=== PATIENT | male | born 1940 | race Caucasian/White ===

== ENCOUNTER 2024-09-20 15:15 | Inpatient (IN) | payer MEDICARE, OTHER ==
[~2024-09-20] VITALS: Ht 172.7 cm; Wt 48.1 kg
[2024-09-20 22:41] VITALS: BP 122/61; TEMP 98.2; O2SAT 96
[2024-09-20] MEDS ORDERED: MELA3TAB41 GT (22:59)
[2024-09-20] MEDS ORDERED: CHOL10005 GT (22:59)
[2024-09-20] MEDS ORDERED: SILV50CR32 TP ×2 (22:59)
[2024-09-20] MEDS ORDERED: DOXA4TAB2 GT (22:59)
[2024-09-20] MEDS ORDERED: ACET650S26 GT (22:59)
[2024-09-20] MEDS ORDERED: HEPA500034 SUBCUT (22:59)
[2024-09-20] MEDS ORDERED: CHLO473M5 MT (22:59)
[2024-09-20] MEDS ORDERED: QUET25TA PO (22:59)
[2024-09-20] MEDS ORDERED: IPRA0.2S48 NEB (22:59)
[2024-09-20] MEDS ORDERED: LANS30CA56 GT (22:59)
[2024-09-20] MEDS ORDERED: GLUC1KIT2 IM (22:59)
[2024-09-20] MEDS ORDERED: NYST15PO4 TP (22:59)
[2024-09-20] MEDS ORDERED: NYST30OI TP (22:59)
[2024-09-20] MEDS ORDERED: ALBU2.5V13 NEB (22:59)
[2024-09-20] MEDS ORDERED: PRAS10TA5 GT (22:59)
[2024-09-20] MEDS ORDERED: ATOR10TA GT (22:59)
[2024-09-20] MEDS ORDERED: DEXT50DI5 IV (22:59)
[2024-09-20] MEDS ORDERED: FERR300L GT (22:59)
[2024-09-20] MEDS ORDERED: ASPI81TA31 GT (22:59)
[2024-09-20] MEDS ORDERED: METH10TA80 GT (22:59)
[2024-09-20] MEDS ORDERED: [UNRECOGNIZED DRUG - CODE] TP (22:59)
[2024-09-20] MEDS ORDERED: MIDO10TA GT (22:59)
[2024-09-20] MEDS ORDERED: [UNRECOGNIZED DRUG - CODE] TOP (22:59)
[2024-09-20] MEDS ORDERED: AMIO200T5 GT (22:59)
[2024-09-20] MEDS ORDERED: MICO142O TP ×2 (22:59)
[2024-09-21] VITALS (10 sets, daily range): BP systolic 109–126; BP diastolic 53–63; TEMP 97.5–97.6; O2SAT 93–99
[2024-09-21] MEDS ORDERED: REMEDY ESSENTIAL ZINC PASTE 113 GM TOP PRN
[2024-09-21] MEDS ORDERED: ALBU2.5V13 IH (09:27)
[2024-09-21] MEDS ORDERED: IPRA0.2S48 NEB (09:32)
[2024-09-21] MEDS ORDERED: MIDO5TAB5 PO (09:34)
[2024-09-21] MEDS ORDERED: MELATONIN 3 MG TABLET GT PRN (13:00)
[2024-09-21] MEDS ORDERED: ACETAMINOPHEN 650 MG/20 ML UDC- SA PATIENTS-PAIN ONLY GT PRN (13:00)
[2024-09-21] MEDS ORDERED: IPRATROPIUM BROMIDE 0.5 MG/2.5 ML NEBU NEB PRN ×2 (13:00→13:07)
[2024-09-21] MEDS ORDERED: MIDODRINE HCL 5 MG TABLET PO PRN ×2 (13:15→13:45)
[2024-09-21] MEDS ORDERED: ACETAMINOPHEN 650 MG/20.3 ML LIQUID UDC PO PRN (13:15)
[2024-09-21] MEDS ORDERED: MICONAZOLE NITRATE CREAM 15 GM TUBE TOP PRN (13:30)
[2024-09-21] MEDS ORDERED: SODIUM HYPOCHLORITE 0.125% (QUARTER STRENGTH) 473 ML BOTTLE TP SCH (13:30)
[2024-09-21] MEDS ORDERED: ALBUTEROL SULFATE 2.5 MG/ 0.5 ML NEBU IH PRN (13:30)
[2024-09-21] MEDS ORDERED: SODIUM HYPOCHLORITE 0.125% (QUARTER STRENGTH) 473 ML BOTTLE TP PRN (13:30)
[2024-09-21] MEDS ORDERED: Medication Not On Formulary EA (Midodrine Hcl 10 MG) GT SCH (14:00)
[2024-09-21] MEDS: AMIODARONE HCL 200 MG TABLET GT SCH (14:18)
[2024-09-21] MEDS: MIDODRINE HCL 5 MG TABLET GT SCH (14:23)
[2024-09-21] MEDS: ALBUTEROL SULFATE 2.5 MG/ 0.5 ML NEBU NEB SCH (14:27)
[2024-09-21] MEDS: IPRATROPIUM BROMIDE 0.5 MG/2.5 ML NEBU NEB SCH (14:28)
[2024-09-21] MEDS ORDERED: SILVER SULFADIAZINE 1% CREAM 50 GM TP PRN (17:00)
[2024-09-21] MEDS ORDERED: HEPARIN SODIUM,PORCINE 5,000 UNITS/ML VIAL SQ SCH (21:00)
[2024-09-21] MEDS: QUETIAPINE FUMARATE 25 MG TABLET PO SCH (21:00)
[2024-09-21] MEDS ORDERED: MICONAZOLE NITRATE CREAM 15 GM TUBE TOP SCH (21:00)
[2024-09-21] MEDS ORDERED: SILVER SULFADIAZINE 1% CREAM 50 GM TP SCH (21:00)
[2024-09-21] MEDS: ATORVASTATIN 10 MG TABLET GT SCH (22:18)
[2024-09-21] MEDS: DOXAZOSIN 2 MG TABLET PO SCH (22:18)
[2024-09-21] MEDS: CHLORHEXIDINE GLUCONATE 15 ML MOUTHWASH MM SCH (22:22)
[2024-09-22] VITALS (8 sets, daily range): BP systolic 105–115; BP diastolic 56–61; TEMP 97.2–97.6; O2SAT 97–100
[2024-09-22] MEDS: METHIMAZOLE 5 MG TABLET GT SCH (06:48)
[2024-09-22 07:47] LABS: BASOPHILS # (AUTO) 0.1 K/UL (0.0-0.2); BASOPHILS % (AUTO) 0.7 % (0.0-2.0); EOSINOPHILS # (AUTO) 0.1 K/uL (0.0-0.7); EOSINOPHILS % (AUTO) 1.6 % (0.0-7.0); HEMATOCRIT 39.2 % (36.7-47.1); HEMOGLOBIN 12.8 g/dL (12.5-16.3); LYMPHOCYTES # (AUTO) 1.5 K/uL (0.8-4.8); LYMPHOCYTES % (AUTO) 15.1 % (20.5-51.5); MEAN CORPUSCULAR HEMOGLOBIN 31.8 uug (23.8-33.4); MEAN CORPUSCULAR HGB CONC 33 g/dL (32.5-36.3); MEAN CORPUSCULAR VOLUME 97.1 fL (73.0-96.2); MONOCYTES # (AUTO) 0.9 K/uL (0.1-1.30); MONOCYTES % (AUTO) 9.2 % (0.0-11.0); NEUTROPHILS # (AUTO) 7.1 K/uL (1.8-8.9); NEUTROPHILS % (AUTO) 73.4 % (38.5-71.5); PLATELET COUNT (AUTO) 385 K/uL (152-348); RED BLOOD CELL COUNT(AUTO) 4.03 MIL/uL (4.06-5.63); RED CELL DISTRIBUTION WIDTH 19.9 % (12.1-16.2); WHITE BLOOD COUNT (AUTO) 9.6 K/uL (3.6-10.2)
[2024-09-22 07:55] LABS: DIFFERENTIAL COMMENT 1
[2024-09-22] MEDS ORDERED: PRASUGREL HYDROCHLORIDE GT SCH (09:00)
[2024-09-22] MEDS ORDERED: METHIMAZOLE GT SCH (09:00)
[2024-09-22] MEDS: FERROUS SULFATE 300 MG/5 ML LIQUID UDC GT SCH (09:16)
[2024-09-22] MEDS: PANTOPRAZOLE ORAL SUSPENSION 40 MG SUSPDR.PKT GT SCH (09:17)
[2024-09-22] MEDS: ASPIRIN 81 MG TAB.CHEW GT SCH (09:17)
[2024-09-22] MEDS: CHOLECALCIFEROL 1,000 UNIT TABLET PO SCH (09:17)
[2024-09-22] MEDS: PRASUGREL HCL 5 MG TABLET PO SCH (09:17)
[2024-09-22] MEDS: ARGININE/GLUTAMINE/CALCIUM BMB 1 EACH POWD.PACK GT SCH (09:18)
[2024-09-22] MEDS: MEDIHONEY= THERAHONEY 1.5 OZ TUBE TOP SCH (14:33)
[2024-09-23] VITALS (9 sets, daily range): BP systolic 98–110; BP diastolic 49–65; TEMP 97.2–98.2; O2SAT 96–100
[2024-09-24] VITALS (10 sets, daily range): BP systolic 99–106; BP diastolic 52–58; TEMP 97.6–98.2; O2SAT 91–100
[2024-09-24 08:26] LABS: BASOPHILS % (AUTO) 0.2 % (0.0-2.0); HEMATOCRIT 38.7 % (36.7-47.1); HEMOGLOBIN 12.8 g/dL (12.5-16.3); LYMPHOCYTES % (AUTO) 6.1 % (20.5-51.5); MEAN CORPUSCULAR HEMOGLOBIN 32.1 uug (23.8-33.4); MEAN CORPUSCULAR HGB CONC 33 g/dL (32.5-36.3); MEAN CORPUSCULAR VOLUME 96.7 fL (73.0-96.2); MONOCYTES # (AUTO) 1.1 K/uL (0.1-1.30); MONOCYTES % (AUTO) 6.6 % (0.0-11.0); NEUTROPHILS # (AUTO) 14.4 K/uL (1.8-8.9); NEUTROPHILS % (AUTO) 87.1 % (38.5-71.5); PLATELET COUNT (AUTO) 385 K/uL (152-348); WHITE BLOOD COUNT (AUTO) 16.5 K/uL (3.6-10.2)
[2024-09-24 08:31] LABS: DIFFERENTIAL COMMENT 1
[2024-09-24 09:05] LABS: ALANINE AMINOTRANSFERASE 28 U/L (16-63); ALBUMIN 2.3 g/dL (3.4-5.0); ALKALINE PHOSPHATASE 143 U/L (50-136); ASPARTATE AMINOTRANSFERASE 21 U/L (15-37); BILIRUBIN,DIRECT 0.1 mg/dL (0.0-0.2); BILIRUBIN,TOTAL 0.5 mg/dL (0.2-1.0); CALCIUM 9.2 mg/dL (8.5-10.1); CARBON DIOXIDE 28 mmol/L (21-32); CHLORIDE 99 mmol/L (98-107); GLUCOSE 192 mg/dL (74-106); MAGNESIUM 2.1 mg/dL (1.8-2.4); PHOSPHOROUS 3.9 mg/dL (2.5-4.9); POTASSIUM 5.1 mmol/L (3.5-5.1); SODIUM SERUM 137 mmol/L (136-145); TOTAL PROTEIN, SERUM 7.3 g/dL (6.4-8.2); UREA NITROGEN, BLOOD 66 mg/dL (7-18)
[2024-09-24 13:03] LABS: *BLOOD, URINE 3+ (NEGATIVE); *CLARITY,URINE CLOUDY (CLEAR); *COLOR,URINE Other (YELLOW); *KETONES,URINE 2+ (NEGATIVE); LEUKOCYTE ESTERASE ,URINE 3+ (NEGATIVE); NITRITE, URINE NEGATIVE (NEGATIVE); PH,URINE 8.5 (5.0-8.0); UGLUCOSE TRACE (NEGATIVE)
[2024-09-24 13:10] LABS: *BILIRUBIN,URIN 3+ (NEGATIVE); *PROTEIN,URINE 3+ (NEGATIVE)
[2024-09-24 13:22] LABS: RBC,URINE TNTC /HPF (0-3); WBC,URINE 20-50 /HPF (0-3)
[2024-09-24] MEDS: OSMOLITE 1.2 CAL 1,000 ML LIQUID GT SCH (17:37)
[2024-09-25] MEDS ORDERED: PIPERACILLIN SODIUM/TAZOBACTAM 3.375 G in IV DEXTROSE 5% 50 ML IV SCH
[2024-09-25] MEDS ORDERED: PIPERACILLIN/TAZOBACTAM/D5W 50 ML ONE (00:09)
[2024-09-25] MEDS: PIPERACILLIN/TAZO 2.25 G in IV DEXTROSE 5% 50 ML IV ONE (00:15)
[2024-09-25] MEDS: IV D5/ 0.9% NACL 1,000 ML IV PRN (00:39)
[2024-09-25] MEDS ORDERED: PIPERACILLIN/TAZOBACTAM/D5W 50 ML IV ONE (05:30)
[2024-09-25] MEDS: PIPERACILLIN SODIUM/TAZOBACTAM 3.375 G in IV DEXTROSE 5% 100 ML IV SCH (06:16)
[2024-09-25 06:27] VITALS: BP 110/68; TEMP 97.4; O2SAT 97
[2024-09-25 07:40] VITALS: O2SAT 96
[2024-09-25 07:55] VITALS: O2SAT 99
[2024-09-25 08:54] LABS: BASOPHILS % (AUTO) 0.2 % (0.0-2.0); EOSINOPHILS % (AUTO) 0.1 % (0.0-7.0); HEMATOCRIT 37.5 % (36.7-47.1); HEMOGLOBIN 12.8 g/dL (12.5-16.3); LYMPHOCYTES # (AUTO) 0.6 K/uL (0.8-4.8); LYMPHOCYTES % (AUTO) 6.3 % (20.5-51.5); MEAN CORPUSCULAR HGB CONC 34 g/dL (32.5-36.3); MEAN CORPUSCULAR VOLUME 96.9 fL (73.0-96.2); MONOCYTES # (AUTO) 0.4 K/uL (0.1-1.30); MONOCYTES % (AUTO) 4.1 % (0.0-11.0); NEUTROPHILS # (AUTO) 8.8 K/uL (1.8-8.9); NEUTROPHILS % (AUTO) 89.3 % (38.5-71.5); PLATELET COUNT (AUTO) 336 K/uL (152-348); RED BLOOD CELL COUNT(AUTO) 3.87 MIL/uL (4.06-5.63); RED CELL DISTRIBUTION WIDTH 19.3 % (12.1-16.2); WHITE BLOOD COUNT (AUTO) 9.8 K/uL (3.6-10.2)
[2024-09-25 09:00] LABS: DIFFERENTIAL COMMENT 1
[2024-09-25 09:06] LABS: CALCIUM 9.4 mg/dL (8.5-10.1); CARBON DIOXIDE 29 mmol/L (21-32); CHLORIDE 101 mmol/L (98-107); GLUCOSE 210 mg/dL (74-106); MAGNESIUM 2.1 mg/dL (1.8-2.4); POTASSIUM 4.9 mmol/L (3.5-5.1); SODIUM SERUM 140 mmol/L (136-145); UREA NITROGEN, BLOOD 77 mg/dL (7-18)
[2024-09-25 09:19] VITALS: BP 102/53; TEMP 94.6; O2SAT 93
[2024-09-25 14:00] VITALS: O2SAT 95
[2024-09-25 14:15] VITALS: O2SAT 99
== END 2024-09-25 14:44 | disposition short-term general hospital (02) | DRG 189 ==
PROVIDERS: ADMIT Physical Medicine & Rehabilitation Pain Medicine; ATTEND Physical Medicine & Rehabilitation Pain Medicine
DX: J96.01 Acute respiratory failure with hypoxia (principal); L89.153 Pressure ulcer of sacral region, stage 3; G92.8 Other toxic encephalopathy; J15.8 Pneumonia due to other specified bacteria; J47.0 Bronchiectasis with acute lower respiratory infection; N39.0 Urinary tract infection, site not specified; G72.81 Critical illness myopathy; K94.13 Enterostomy malfunction; J96.02 Acute respiratory failure with hypercapnia; I25.10 Atherosclerotic heart disease of native coronary artery without angina pectoris; I10 Essential (primary) hypertension; E78.5 Hyperlipidemia, unspecified; E03.9 Hypothyroidism, unspecified; J43.9 Emphysema, unspecified; R13.10 Dysphagia, unspecified; Z98.61 Coronary angioplasty status; Z85.038 Personal history of other malignant neoplasm of large intestine; E11.9 Type 2 diabetes mellitus without complications; Z87.442 Personal history of urinary calculi; Z90.49 Acquired absence of other specified parts of digestive tract; Z22.39 Carrier of other specified bacterial diseases; R31.0 Gross hematuria
CPT/HCPCS: 36415; 71045; 83735; 84100; 85025; 86140; 94640; 94664; 94760; 97535-GO-CO; J2543; J3590; J7042

== ENCOUNTER 2024-09-25 14:56 | Inpatient (IN) | payer MEDICARE, OTHER ==
[~2024-09-25] VITALS: Ht 167.6 cm; Wt 58.5 kg
[2024-09-25 14:50] VITALS: BP 102/49; TEMP 97.9; O2SAT 95
[~2024-09-25 14:56] MED LIST: ACET650S26 GT; ALBU2.5V13 IH; ALBU2.5V13 NEB; AMIO200T5 GT; ASPI81TA31 GT; ATOR10TA GT; CHLO473M5 MT; CHOL10005 GT; DEXT50DI5 IV; DOXA4TAB2 GT; FERR300L GT; GLUC1KIT2 IM; IPRA0.2S48 NEB; LANS30CA56 GT; MELA3TAB41 GT; METH10TA80 GT; MIDO10TA GT; PRAS10TA5 GT; QUET25TA PO
[2024-09-25] MEDS ORDERED: DEXTROSE 50% 50 ML DISP.SYRIN IV PRN (18:00)
[2024-09-25] MEDS ORDERED: GLUCAGON,HUMAN RECOMBINANT 1 MG VIAL IM PRN (18:00)
[2024-09-25] MEDS ORDERED: ALBUTEROL SULFATE 2.5 MG/ 0.5 ML NEBU NEB PRN (18:00)
[2024-09-25] MEDS ORDERED: IPRATROPIUM BROMIDE 0.5 MG/2.5 ML NEBU NEB PRN (18:00)
[2024-09-25 19:30] VITALS: BP 120/64; TEMP 97.9; O2SAT 100
[2024-09-25 20:10] VITALS: O2SAT 97
[2024-09-25] MEDS: ALBUTEROL SULFATE 2.5 MG/ 0.5 ML NEBU NEB SCH (20:10)
[2024-09-25] MEDS: IPRATROPIUM BROMIDE 0.5 MG/2.5 ML NEBU NEB SCH (20:10)
[2024-09-25] MEDS: CHLORHEXIDINE GLUCONATE 15 ML MOUTHWASH MM SCH (21:04)
[2024-09-25] MEDS: DOXAZOSIN 1 MG TABLET GT SCH (21:05)
[2024-09-25] MEDS: AMIODARONE HCL 200 MG TABLET GT SCH (21:05)
[2024-09-25] MEDS: QUETIAPINE FUMARATE 25 MG TABLET GT SCH (21:05)
[2024-09-25] MEDS: ATORVASTATIN 10 MG TABLET GT SCH (21:05)
[2024-09-25] MEDS: PIPERACILLIN SODIUM/TAZOBACTAM 3.375 G in IV DEXTROSE 5% 50 ML IV SCH (21:06)
[2024-09-25] MEDS: MIDODRINE HCL 5 MG TABLET GT SCH (21:17)
[2024-09-26] VITALS (11 sets, daily range): BP systolic 94–108; BP diastolic 43–55; TEMP 97.1–97.8; O2SAT 96–99
[2024-09-26] MEDS: OSMOLITE 1.2 CAL 1,000 ML LIQUID GT PRN ×2 (00:35→17:23)
[2024-09-26] MEDS: PANTOPRAZOLE ORAL SUSPENSION 40 MG SUSPDR.PKT GT SCH (06:21)
[2024-09-26 06:45] LABS: BASOPHILS % (AUTO) 0.3 % (0.0-2.0); EOSINOPHILS % (AUTO) 0.3 % (0.0-7.0); HEMOGLOBIN 12.6 g/dL (12.5-16.3); LYMPHOCYTES # (AUTO) 1.1 K/uL (0.8-4.8); LYMPHOCYTES % (AUTO) 8.5 % (20.5-51.5); MEAN CORPUSCULAR HEMOGLOBIN 32.5 uug (23.8-33.4); MEAN CORPUSCULAR HGB CONC 33 g/dL (32.5-36.3); MEAN CORPUSCULAR VOLUME 97.6 fL (73.0-96.2); MONOCYTES # (AUTO) 0.6 K/uL (0.1-1.30); MONOCYTES % (AUTO) 4.7 % (0.0-11.0); NEUTROPHILS # (AUTO) 10.6 K/uL (1.8-8.9); NEUTROPHILS % (AUTO) 86.2 % (38.5-71.5); PLATELET COUNT (AUTO) 362 K/uL (152-348); RED BLOOD CELL COUNT(AUTO) 3.89 MIL/uL (4.06-5.63); RED CELL DISTRIBUTION WIDTH 19.4 % (12.1-16.2); WHITE BLOOD COUNT (AUTO) 12.3 K/uL (3.6-10.2)
[2024-09-26 07:05] LABS: CALCIUM 9.8 mg/dL (8.5-10.1); CARBON DIOXIDE 33 mmol/L (21-32); CHLORIDE 104 mmol/L (98-107); CREATININE 2.1 mg/dL (0.6-1.3); GLUCOSE 133 mg/dL (74-106); POTASSIUM 4.6 mmol/L (3.5-5.1); SODIUM SERUM 145 mmol/L (136-145)
[2024-09-26 07:08] LABS: DIFFERENTIAL COMMENT 1
[2024-09-26 07:11] LABS: UREA NITROGEN, BLOOD 88 mg/dL (7-18)
[2024-09-26] MEDS: FERROUS SULFATE 300 MG/5 ML LIQUID UDC GT SCH (09:14)
[2024-09-26] MEDS: ASPIRIN 81 MG TAB.CHEW GT SCH (09:16)
[2024-09-26] MEDS: PRASUGREL HCL 5 MG TABLET PO SCH (09:17)
[2024-09-26] MEDS: CHOLECALCIFEROL 1,000 UNIT TABLET GT SCH (09:17)
[2024-09-26] MEDS: METHIMAZOLE 5 MG TABLET GT SCH (09:17)
[2024-09-26] MEDS: PIPERACILLIN SODIUM/TAZOBACTAM 3.375 G in IV DEXTROSE 5% 100 ML IV SCH (21:28)
[2024-09-27] VITALS (13 sets, daily range): BP systolic 90–108; BP diastolic 45–57; TEMP 97–98; O2SAT 95–99
[2024-09-27] MEDS: ACETAMINOPHEN 650 MG/20.3 ML LIQUID UDC GT PRN (03:25)
[2024-09-27 07:11] LABS: BASOPHILS % (AUTO) 0.1 % (0.0-2.0); EOSINOPHILS % (AUTO) 0.3 % (0.0-7.0); HEMATOCRIT 34.6 % (36.7-47.1); HEMOGLOBIN 11.3 g/dL (12.5-16.3); LYMPHOCYTES # (AUTO) 0.7 K/uL (0.8-4.8); LYMPHOCYTES % (AUTO) 4.9 % (20.5-51.5); MEAN CORPUSCULAR HEMOGLOBIN 32.1 uug (23.8-33.4); MEAN CORPUSCULAR HGB CONC 33 g/dL (32.5-36.3); MEAN CORPUSCULAR VOLUME 98.4 fL (73.0-96.2); MONOCYTES # (AUTO) 0.6 K/uL (0.1-1.30); NEUTROPHILS # (AUTO) 12.5 K/uL (1.8-8.9); NEUTROPHILS % (AUTO) 90.7 % (38.5-71.5); PLATELET COUNT (AUTO) 306 K/uL (152-348); RED BLOOD CELL COUNT(AUTO) 3.51 MIL/uL (4.06-5.63); RED CELL DISTRIBUTION WIDTH 19.3 % (12.1-16.2); WHITE BLOOD COUNT (AUTO) 13.8 K/uL (3.6-10.2)
[2024-09-27 07:36] LABS: CALCIUM 8.6 mg/dL (8.5-10.1); CARBON DIOXIDE 30 mmol/L (21-32); CHLORIDE 107 mmol/L (98-107); CREATININE 1.7 mg/dL (0.6-1.3); GLUCOSE 216 mg/dL (74-106); MAGNESIUM 2.1 mg/dL (1.8-2.4); PHOSPHOROUS 3.7 mg/dL (2.5-4.9); POTASSIUM 4.1 mmol/L (3.5-5.1); SODIUM SERUM 147 mmol/L (136-145); UREA NITROGEN, BLOOD 80 mg/dL (7-18)
[2024-09-27 07:45] LABS: DIFFERENTIAL COMMENT 1
[2024-09-27 12:30] LABS: LYMPHOCYTES % (MANUAL) 5 % (20-40); MONOCYTES % (MANUAL) 4 % (2-10); NEUTROPHILS % (MANUAL) 91 % (42-75); PLATELET ESTIMATE ADEQUATE
[2024-09-27] MEDS: ARGININE/GLUTAMINE/CALCIUM BMB 1 EACH POWD.PACK GT SCH (13:53)
[2024-09-27] MEDS: MEDIHONEY= THERAHONEY 1.5 OZ TUBE TOP SCH (13:54)
[2024-09-27 15:09] LABS: *BILIRUBIN,URIN NEGATIVE (NEGATIVE); *BLOOD, URINE 3+ (NEGATIVE); *CLARITY,URINE SLIGHTLY CLOUDY (CLEAR); *COLOR,URINE YELLOW (YELLOW); *KETONES,URINE NEGATIVE (NEGATIVE); *PROTEIN,URINE 2+ (NEGATIVE); *UROBILINOGEN,URINE 0.2 E.U./dl (NORMAL); LEUKOCYTE ESTERASE ,URINE 2+ (NEGATIVE); NITRITE, URINE NEGATIVE (NEGATIVE); UGLUCOSE NEGATIVE (NEGATIVE)
[2024-09-27 15:35] LABS: RBC,URINE 80-100 /HPF (0-3)
[2024-09-27 15:36] LABS: BACTERIA,URINE FEW /HPF (NONE SEEN); SQUAMOUS EPITHELIAL CELL,UR FEW /HPF (NONE SEEN); WBC,URINE 20-50 /HPF (0-3)
[2024-09-27] MEDS: PIPERACILLIN SODIUM/TAZOBACTAM 3.375 G in IV DEXTROSE 5% 100 ML IV SCH (16:39)
[2024-09-28] VITALS (10 sets, daily range): BP systolic 91–113; BP diastolic 47–61; TEMP 97–98.3; O2SAT 94–100
[2024-09-28 07:09] LABS: BASOPHILS % (AUTO) 0.2 % (0.0-2.0); EOSINOPHILS # (AUTO) 0.1 K/uL (0.0-0.7); EOSINOPHILS % (AUTO) 0.6 % (0.0-7.0); HEMATOCRIT 31.5 % (36.7-47.1); HEMOGLOBIN 10.4 g/dL (12.5-16.3); LYMPHOCYTES # (AUTO) 0.9 K/uL (0.8-4.8); MEAN CORPUSCULAR HEMOGLOBIN 32.2 uug (23.8-33.4); MEAN CORPUSCULAR HGB CONC 33 g/dL (32.5-36.3); MEAN CORPUSCULAR VOLUME 97.5 fL (73.0-96.2); MONOCYTES # (AUTO) 0.8 K/uL (0.1-1.30); MONOCYTES % (AUTO) 5.1 % (0.0-11.0); NEUTROPHILS # (AUTO) 13.3 K/uL (1.8-8.9); NEUTROPHILS % (AUTO) 88.1 % (38.5-71.5); PLATELET COUNT (AUTO) 295 K/uL (152-348); RED BLOOD CELL COUNT(AUTO) 3.23 MIL/uL (4.06-5.63); RED CELL DISTRIBUTION WIDTH 18.6 % (12.1-16.2); WHITE BLOOD COUNT (AUTO) 15.1 K/uL (3.6-10.2)
[2024-09-28 07:21] LABS: CALCIUM 8.6 mg/dL (8.5-10.1); CARBON DIOXIDE 30 mmol/L (21-32); CHLORIDE 110 mmol/L (98-107); CREATININE 1.7 mg/dL (0.6-1.3); GLUCOSE 206 mg/dL (74-106); MAGNESIUM 2.2 mg/dL (1.8-2.4); PHOSPHOROUS 3.7 mg/dL (2.5-4.9); POTASSIUM 3.7 mmol/L (3.5-5.1); SODIUM SERUM 150 mmol/L (136-145); UREA NITROGEN, BLOOD 71 mg/dL (7-18)
[2024-09-28 07:46] LABS: DIFFERENTIAL COMMENT 1
[2024-09-28] MEDS: IV D5W 1000ML 1,000 ML IV ONE (09:05)
[2024-09-28 11:30] LABS: BAND % (MANUAL) 3 % (0-10); LYMPHOCYTES % (MANUAL) 9 % (20-40); MONOCYTES % (MANUAL) 5 % (2-10); NEUTROPHILS % (MANUAL) 80 % (42-75)
[2024-09-28 11:31] LABS: ANISOCYTOSIS 1+; MYELOCYTES % 3 % (0-0); PLATELET ESTIMATE ADEQUATE
[2024-09-29] VITALS (12 sets, daily range): BP systolic 96–117; BP diastolic 45–57; TEMP 97.1–97.6; O2SAT 92–99
[2024-09-29 06:48] LABS: BASOPHILS % (AUTO) 0.3 % (0.0-2.0); EOSINOPHILS # (AUTO) 0.2 K/uL (0.0-0.7); EOSINOPHILS % (AUTO) 0.9 % (0.0-7.0); HEMATOCRIT 36.2 % (36.7-47.1); HEMOGLOBIN 11.8 g/dL (12.5-16.3); LYMPHOCYTES # (AUTO) 1.2 K/uL (0.8-4.8); LYMPHOCYTES % (AUTO) 6.5 % (20.5-51.5); MEAN CORPUSCULAR HEMOGLOBIN 31.7 uug (23.8-33.4); MEAN CORPUSCULAR HGB CONC 33 g/dL (32.5-36.3); MEAN CORPUSCULAR VOLUME 97.3 fL (73.0-96.2); MONOCYTES % (AUTO) 5.3 % (0.0-11.0); NEUTROPHILS # (AUTO) 15.9 K/uL (1.8-8.9); PLATELET COUNT (AUTO) 348 K/uL (152-348); RED BLOOD CELL COUNT(AUTO) 3.72 MIL/uL (4.06-5.63); RED CELL DISTRIBUTION WIDTH 19.1 % (12.1-16.2); WHITE BLOOD COUNT (AUTO) 18.2 K/uL (3.6-10.2)
[2024-09-29 06:51] LABS: DIFFERENTIAL COMMENT 1
[2024-09-29 07:10] LABS: CALCIUM 8.8 mg/dL (8.5-10.1); CARBON DIOXIDE 36 mmol/L (21-32); CHLORIDE 106 mmol/L (98-107); CREATININE 1.6 mg/dL (0.6-1.3); GLUCOSE 130 mg/dL (74-106); MAGNESIUM 2.1 mg/dL (1.8-2.4); PHOSPHOROUS 3.9 mg/dL (2.5-4.9); POTASSIUM 3.6 mmol/L (3.5-5.1); SODIUM SERUM 148 mmol/L (136-145); UREA NITROGEN, BLOOD 78 mg/dL (7-18)
[2024-09-29] MEDS ORDERED: MEROPENEM 500 MG in IV NORMAL SALINE 50 ML IV SCH (23:15)
[2024-09-30] VITALS (12 sets, daily range): BP systolic 103–119; BP diastolic 52–65; TEMP 96.5–98.4; O2SAT 95–99
[2024-09-30] MEDS ORDERED: MEROPENEM 500MG/NS 50ML PB ***ER PYXIS ONLY IV ONE (00:08)
[2024-09-30] MEDS: MEROPENEM 500 MG in IV NORMAL SALINE 50 ML IV ONE (00:15)
[2024-09-30 07:19] LABS: BASOPHILS % (AUTO) 0.3 % (0.0-2.0); EOSINOPHILS % (AUTO) 0.4 % (0.0-7.0); HEMATOCRIT 38.4 % (36.7-47.1); HEMOGLOBIN 12.5 g/dL (12.5-16.3); LYMPHOCYTES % (AUTO) 6.7 % (20.5-51.5); MEAN CORPUSCULAR HEMOGLOBIN 31.9 uug (23.8-33.4); MEAN CORPUSCULAR HGB CONC 33 g/dL (32.5-36.3); MONOCYTES % (AUTO) 4.2 % (0.0-11.0); NEUTROPHILS % (AUTO) 88.4 % (38.5-71.5); PLATELET COUNT (AUTO) 365 K/uL (152-348); RED BLOOD CELL COUNT(AUTO) 3.91 MIL/uL (4.06-5.63); RED CELL DISTRIBUTION WIDTH 18.9 % (12.1-16.2); WHITE BLOOD COUNT (AUTO) 20.3 K/uL (3.6-10.2)
[2024-09-30 07:20] LABS: BASOPHILS # (AUTO) 0.1 K/UL (0.0-0.2); EOSINOPHILS # (AUTO) 0.1 K/uL (0.0-0.7); LYMPHOCYTES # (AUTO) 1.4 K/uL (0.8-4.8); MONOCYTES # (AUTO) 0.9 K/uL (0.1-1.30)
[2024-09-30 07:37] LABS: CALCIUM 9.1 mg/dL (8.5-10.1); CARBON DIOXIDE 34 mmol/L (21-32); CHLORIDE 106 mmol/L (98-107); CREATININE 1.8 mg/dL (0.6-1.3); GLUCOSE 198 mg/dL (74-106); MAGNESIUM 2.4 mg/dL (1.8-2.4); PHOSPHOROUS 3.7 mg/dL (2.5-4.9); POTASSIUM 3.7 mmol/L (3.5-5.1); SODIUM SERUM 150 mmol/L (136-145)
[2024-09-30 07:48] LABS: DIFFERENTIAL COMMENT 1
[2024-09-30 08:11] LABS: UREA NITROGEN, BLOOD 92 mg/dL (7-18)
[2024-09-30] MEDS: IV D5W 1000ML 1,000 ML IV ONE (10:21)
[2024-09-30] MEDS: MEROPENEM 500 MG in IV NORMAL SALINE 50 ML IV SCH (12:15)
[2024-10-01] VITALS (11 sets, daily range): BP systolic 91–113; BP diastolic 45–60; TEMP 97–97.8; O2SAT 93–100
[2024-10-01 06:24] LABS: BASOPHILS # (AUTO) 0.2 K/UL (0.0-0.2); BASOPHILS % (AUTO) 1.3 % (0.0-2.0); EOSINOPHILS # (AUTO) 0.2 K/uL (0.0-0.7); EOSINOPHILS % (AUTO) 1.3 % (0.0-7.0); HEMATOCRIT 38.7 % (36.7-47.1); HEMOGLOBIN 12.6 g/dL (12.5-16.3); LYMPHOCYTES # (AUTO) 1.8 K/uL (0.8-4.8); LYMPHOCYTES % (AUTO) 9.6 % (20.5-51.5); MEAN CORPUSCULAR HEMOGLOBIN 31.4 uug (23.8-33.4); MEAN CORPUSCULAR HGB CONC 33 g/dL (32.5-36.3); MEAN CORPUSCULAR VOLUME 96.4 fL (73.0-96.2); MONOCYTES # (AUTO) 0.9 K/uL (0.1-1.30); MONOCYTES % (AUTO) 4.9 % (0.0-11.0); NEUTROPHILS # (AUTO) 15.4 K/uL (1.8-8.9); NEUTROPHILS % (AUTO) 82.9 % (38.5-71.5); PLATELET COUNT (AUTO) 330 K/uL (152-348); RED BLOOD CELL COUNT(AUTO) 4.01 MIL/uL (4.06-5.63); RED CELL DISTRIBUTION WIDTH 18.5 % (12.1-16.2); WHITE BLOOD COUNT (AUTO) 18.5 K/uL (3.6-10.2)
[2024-10-01 06:37] LABS: CARBON DIOXIDE 38 mmol/L (21-32); CHLORIDE 99 mmol/L (98-107); CREATININE 1.6 mg/dL (0.6-1.3); GLUCOSE 178 mg/dL (74-106); MAGNESIUM 2.2 mg/dL (1.8-2.4); PHOSPHOROUS 3.5 mg/dL (2.5-4.9); POTASSIUM 3.9 mmol/L (3.5-5.1); SODIUM SERUM 142 mmol/L (136-145)
[2024-10-01 07:02] LABS: DIFFERENTIAL COMMENT 1
[2024-10-01 07:10] LABS: UREA NITROGEN, BLOOD 91 mg/dL (7-18)
[2024-10-01 09:50] LABS: ABG BASE EXCESS 9.8 mmol/L (-2.0-3.0); ABG HCO3 33.8 mmol/L (21.0-28.0); ABG PCO2 42.7 mmHg (35.0-48.0); ABG PH 7.516 (7.350-7.450); ABG PO2 64.6 mmHg (83.0-108.0); ABG SITE RIGHT RADIAL; ABG TOTAL HEMOGLOBIN 13.2 G/dL (13.5-17.5); AaDO2 94.4 mmHg; COHb 0.5 % (0.5-1.5); MetHb 0.2 % (0.0-1.5); O2Hb 92.7 % (94.0-98.0)
[2024-10-02] VITALS (12 sets, daily range): BP systolic 99–118; BP diastolic 50–61; TEMP 97.1–97.8; O2SAT 94–100
[2024-10-02 07:09] LABS: BASOPHILS # (AUTO) 0.1 K/UL (0.0-0.2); BASOPHILS % (AUTO) 0.3 % (0.0-2.0); EOSINOPHILS # (AUTO) 0.2 K/uL (0.0-0.7); EOSINOPHILS % (AUTO) 1.1 % (0.0-7.0); HEMATOCRIT 37.7 % (36.7-47.1); HEMOGLOBIN 12.5 g/dL (12.5-16.3); LYMPHOCYTES # (AUTO) 1.7 K/uL (0.8-4.8); LYMPHOCYTES % (AUTO) 11.2 % (20.5-51.5); MEAN CORPUSCULAR HEMOGLOBIN 32.4 uug (23.8-33.4); MEAN CORPUSCULAR HGB CONC 33 g/dL (32.5-36.3); MEAN CORPUSCULAR VOLUME 97.5 fL (73.0-96.2); MONOCYTES # (AUTO) 0.8 K/uL (0.1-1.30); NEUTROPHILS # (AUTO) 12.4 K/uL (1.8-8.9); NEUTROPHILS % (AUTO) 82.4 % (38.5-71.5); PLATELET COUNT (AUTO) 345 K/uL (152-348); RED BLOOD CELL COUNT(AUTO) 3.86 MIL/uL (4.06-5.63); RED CELL DISTRIBUTION WIDTH 18.2 % (12.1-16.2)
[2024-10-02 07:25] LABS: DIFFERENTIAL COMMENT 1
[2024-10-02 07:43] LABS: CALCIUM 8.7 mg/dL (8.5-10.1); CARBON DIOXIDE 38 mmol/L (21-32); CHLORIDE 100 mmol/L (98-107); CREATININE 1.6 mg/dL (0.6-1.3); GLUCOSE 153 mg/dL (74-106); MAGNESIUM 2.1 mg/dL (1.8-2.4); POTASSIUM 4.1 mmol/L (3.5-5.1); SODIUM SERUM 144 mmol/L (136-145)
[2024-10-02 07:49] LABS: UREA NITROGEN, BLOOD 84 mg/dL (7-18)
[2024-10-02 08:55] LABS: EOSINOPHILS % (MANUAL) 1 % (0-8); LYMPHOCYTES % (MANUAL) 11 % (20-40); METAMYELOCYTES % 2 % (0-1); MONOCYTES % (MANUAL) 6 % (2-10); MYELOCYTES % 1 % (0-0); NEUTROPHILS % (MANUAL) 79 % (42-75); PLATELET ESTIMATE ADEQUATE
[2024-10-03] VITALS (14 sets, daily range): BP systolic 95–116; BP diastolic 53–65; TEMP 97.3–97.9; O2SAT 96–100
[2024-10-03 06:47] LABS: BASOPHILS % (AUTO) 0.3 % (0.0-2.0); EOSINOPHILS # (AUTO) 0.2 K/uL (0.0-0.7); EOSINOPHILS % (AUTO) 1.2 % (0.0-7.0); HEMATOCRIT 39.1 % (36.7-47.1); HEMOGLOBIN 12.8 g/dL (12.5-16.3); LYMPHOCYTES # (AUTO) 1.6 K/uL (0.8-4.8); LYMPHOCYTES % (AUTO) 9.4 % (20.5-51.5); MEAN CORPUSCULAR HEMOGLOBIN 31.6 uug (23.8-33.4); MEAN CORPUSCULAR HGB CONC 33 g/dL (32.5-36.3); MEAN CORPUSCULAR VOLUME 96.4 fL (73.0-96.2); MONOCYTES # (AUTO) 0.8 K/uL (0.1-1.30); MONOCYTES % (AUTO) 4.4 % (0.0-11.0); NEUTROPHILS # (AUTO) 14.8 K/uL (1.8-8.9); NEUTROPHILS % (AUTO) 84.7 % (38.5-71.5); PLATELET COUNT (AUTO) 365 K/uL (152-348); RED BLOOD CELL COUNT(AUTO) 4.06 MIL/uL (4.06-5.63); RED CELL DISTRIBUTION WIDTH 18.9 % (12.1-16.2); WHITE BLOOD COUNT (AUTO) 17.4 K/uL (3.6-10.2)
[2024-10-03 06:56] LABS: DIFFERENTIAL COMMENT 1
[2024-10-03 07:00] LABS: CALCIUM 8.6 mg/dL (8.5-10.1); CARBON DIOXIDE 39 mmol/L (21-32); CHLORIDE 100 mmol/L (98-107); CREATININE 1.4 mg/dL (0.6-1.3); GLUCOSE 146 mg/dL (74-106); MAGNESIUM 2.2 mg/dL (1.8-2.4); PHOSPHOROUS 3.6 mg/dL (2.5-4.9); POTASSIUM 3.4 mmol/L (3.5-5.1); SODIUM SERUM 144 mmol/L (136-145)
[2024-10-03 07:06] LABS: UREA NITROGEN, BLOOD 98 mg/dL (7-18)
[2024-10-03] MEDS: POTASSIUM CHLORIDE 20 MEQ POWDER PACKET GT ONE (13:02)
[2024-10-03] MEDS ORDERED: FLUCONAZOLE 100 MG TABLET ONE (21:17)
[2024-10-03] MEDS: FLUCONAZOLE 100 MG TABLET PO SCH (22:14)
[2024-10-04] VITALS (14 sets, daily range): BP systolic 102–144; BP diastolic 55–74; TEMP 97.3–98.5; O2SAT 94–100
[2024-10-04 09:30] LABS: BASOPHILS % (AUTO) 0.2 % (0.0-2.0); EOSINOPHILS # (AUTO) 0.2 K/uL (0.0-0.7); HEMATOCRIT 40.7 % (36.7-47.1); HEMOGLOBIN 13.1 g/dL (12.5-16.3); LYMPHOCYTES # (AUTO) 2.3 K/uL (0.8-4.8); LYMPHOCYTES % (AUTO) 10.6 % (20.5-51.5); MEAN CORPUSCULAR HEMOGLOBIN 31.6 uug (23.8-33.4); MEAN CORPUSCULAR HGB CONC 32 g/dL (32.5-36.3); MEAN CORPUSCULAR VOLUME 98.2 fL (73.0-96.2); MONOCYTES # (AUTO) 0.8 K/uL (0.1-1.30); MONOCYTES % (AUTO) 3.6 % (0.0-11.0); NEUTROPHILS # (AUTO) 18.5 K/uL (1.8-8.9); NEUTROPHILS % (AUTO) 84.6 % (38.5-71.5); PLATELET COUNT (AUTO) 363 K/uL (152-348); RED BLOOD CELL COUNT(AUTO) 4.15 MIL/uL (4.06-5.63); RED CELL DISTRIBUTION WIDTH 19.3 % (12.1-16.2); WHITE BLOOD COUNT (AUTO) 21.8 K/uL (3.6-10.2)
[2024-10-04 09:31] LABS: DIFFERENTIAL COMMENT 1
[2024-10-04 09:45] LABS: CALCIUM 9.3 mg/dL (8.5-10.1); CARBON DIOXIDE 36 mmol/L (21-32); CHLORIDE 100 mmol/L (98-107); CREATININE 1.5 mg/dL (0.6-1.3); GLUCOSE 117 mg/dL (74-106); MAGNESIUM 2.4 mg/dL (1.8-2.4); PHOSPHOROUS 4.5 mg/dL (2.5-4.9); POTASSIUM 4.5 mmol/L (3.5-5.1); SODIUM SERUM 142 mmol/L (136-145)
[2024-10-04 09:49] LABS: UREA NITROGEN, BLOOD 86 mg/dL (7-18)
[2024-10-04 11:48] LABS: EOSINOPHILS % (MANUAL) 1 % (0-8); LYMPHOCYTES % (MANUAL) 10 % (20-40); MONOCYTES % (MANUAL) 5 % (2-10); NEUTROPHILS % (MANUAL) 83 % (42-75)
[2024-10-04 11:49] LABS: ANISOCYTOSIS 2+; MYELOCYTES % 1 % (0-0); PLATELET ESTIMATE INCREASED
[2024-10-05] VITALS (11 sets, daily range): BP systolic 99–120; BP diastolic 54–64; TEMP 97.4–97.6; O2SAT 92–99
[2024-10-05] MEDS: MELATONIN 3 MG TABLET PO PRN (00:29)
[2024-10-05 06:53] LABS: BASOPHILS # (AUTO) 0.1 K/UL (0.0-0.2); BASOPHILS % (AUTO) 0.3 % (0.0-2.0); EOSINOPHILS # (AUTO) 0.1 K/uL (0.0-0.7); EOSINOPHILS % (AUTO) 0.5 % (0.0-7.0); HEMATOCRIT 38.1 % (36.7-47.1); HEMOGLOBIN 12.9 g/dL (12.5-16.3); LYMPHOCYTES # (AUTO) 1.3 K/uL (0.8-4.8); LYMPHOCYTES % (AUTO) 6.4 % (20.5-51.5); MEAN CORPUSCULAR HEMOGLOBIN 32.5 uug (23.8-33.4); MEAN CORPUSCULAR HGB CONC 34 g/dL (32.5-36.3); MEAN CORPUSCULAR VOLUME 96.4 fL (73.0-96.2); MONOCYTES # (AUTO) 0.7 K/uL (0.1-1.30); MONOCYTES % (AUTO) 3.6 % (0.0-11.0); NEUTROPHILS # (AUTO) 18.4 K/uL (1.8-8.9); NEUTROPHILS % (AUTO) 89.2 % (38.5-71.5); PLATELET COUNT (AUTO) 349 K/uL (152-348); RED BLOOD CELL COUNT(AUTO) 3.95 MIL/uL (4.06-5.63); RED CELL DISTRIBUTION WIDTH 18.3 % (12.1-16.2); WHITE BLOOD COUNT (AUTO) 20.6 K/uL (3.6-10.2)
[2024-10-05 07:06] LABS: CALCIUM 9.3 mg/dL (8.5-10.1); CARBON DIOXIDE 37 mmol/L (21-32); CHLORIDE 100 mmol/L (98-107); CREATININE 1.5 mg/dL (0.6-1.3); GLUCOSE 158 mg/dL (74-106); MAGNESIUM 2.3 mg/dL (1.8-2.4); PHOSPHOROUS 4.5 mg/dL (2.5-4.9); POTASSIUM 3.8 mmol/L (3.5-5.1); SODIUM SERUM 142 mmol/L (136-145)
[2024-10-05 07:08] LABS: DIFFERENTIAL COMMENT 1
[2024-10-05 07:11] LABS: UREA NITROGEN, BLOOD 94 mg/dL (7-18)
[2024-10-05] MEDS ORDERED: SEVOFLURANE 250 ML BOTTLE ONE (08:46)
[2024-10-05] MEDS: IV NS 1000 ML 1,000 ML IV PRN (13:46)
[2024-10-06] VITALS (11 sets, daily range): BP systolic 100–129; BP diastolic 60–89; TEMP 97.4–97.9; O2SAT 95–100
[2024-10-06 07:00] LABS: BASOPHILS # (AUTO) 0.1 K/UL (0.0-0.2); BASOPHILS % (AUTO) 0.4 % (0.0-2.0); EOSINOPHILS # (AUTO) 0.1 K/uL (0.0-0.7); EOSINOPHILS % (AUTO) 0.7 % (0.0-7.0); HEMATOCRIT 35.4 % (36.7-47.1); HEMOGLOBIN 11.6 g/dL (12.5-16.3); LYMPHOCYTES # (AUTO) 1.1 K/uL (0.8-4.8); LYMPHOCYTES % (AUTO) 7.2 % (20.5-51.5); MEAN CORPUSCULAR HEMOGLOBIN 31.9 uug (23.8-33.4); MEAN CORPUSCULAR HGB CONC 33 g/dL (32.5-36.3); MEAN CORPUSCULAR VOLUME 97.5 fL (73.0-96.2); MONOCYTES # (AUTO) 0.7 K/uL (0.1-1.30); MONOCYTES % (AUTO) 4.5 % (0.0-11.0); NEUTROPHILS # (AUTO) 13.5 K/uL (1.8-8.9); NEUTROPHILS % (AUTO) 87.2 % (38.5-71.5); PLATELET COUNT (AUTO) 313 K/uL (152-348); RED BLOOD CELL COUNT(AUTO) 3.63 MIL/uL (4.06-5.63); WHITE BLOOD COUNT (AUTO) 15.5 K/uL (3.6-10.2)
[2024-10-06 07:13] LABS: CALCIUM 8.5 mg/dL (8.5-10.1); CARBON DIOXIDE 37 mmol/L (21-32); CHLORIDE 103 mmol/L (98-107); CREATININE 1.3 mg/dL (0.6-1.3); GLUCOSE 140 mg/dL (74-106); MAGNESIUM 2.1 mg/dL (1.8-2.4); PHOSPHOROUS 3.8 mg/dL (2.5-4.9); POTASSIUM 3.9 mmol/L (3.5-5.1); SODIUM SERUM 144 mmol/L (136-145)
[2024-10-06 07:18] LABS: DIFFERENTIAL COMMENT 1
[2024-10-06 07:22] LABS: UREA NITROGEN, BLOOD 95 mg/dL (7-18)
[2024-10-07] VITALS (7 sets, daily range): BP systolic 102–138; BP diastolic 53–59; TEMP 97.3–97.9; O2SAT 96–99
[2024-10-07 06:26] LABS: BASOPHILS % (AUTO) 0.3 % (0.0-2.0); EOSINOPHILS # (AUTO) 0.1 K/uL (0.0-0.7); EOSINOPHILS % (AUTO) 0.7 % (0.0-7.0); HEMATOCRIT 33.2 % (36.7-47.1); HEMOGLOBIN 10.8 g/dL (12.5-16.3); MEAN CORPUSCULAR HEMOGLOBIN 32.1 uug (23.8-33.4); MEAN CORPUSCULAR HGB CONC 33 g/dL (32.5-36.3); MEAN CORPUSCULAR VOLUME 98.7 fL (73.0-96.2); MONOCYTES # (AUTO) 0.7 K/uL (0.1-1.30); MONOCYTES % (AUTO) 5.7 % (0.0-11.0); NEUTROPHILS # (AUTO) 10.6 K/uL (1.8-8.9); NEUTROPHILS % (AUTO) 85.3 % (38.5-71.5); PLATELET COUNT (AUTO) 294 K/uL (152-348); RED BLOOD CELL COUNT(AUTO) 3.37 MIL/uL (4.06-5.63); RED CELL DISTRIBUTION WIDTH 18.3 % (12.1-16.2); WHITE BLOOD COUNT (AUTO) 12.5 K/uL (3.6-10.2)
[2024-10-07 06:46] LABS: CALCIUM 8.3 mg/dL (8.5-10.1); CARBON DIOXIDE 37 mmol/L (21-32); CHLORIDE 111 mmol/L (98-107); GLUCOSE 138 mg/dL (74-106); POTASSIUM 3.9 mmol/L (3.5-5.1); SODIUM SERUM 147 mmol/L (136-145); UREA NITROGEN, BLOOD 66 mg/dL (7-18)
[2024-10-07 06:55] LABS: DIFFERENTIAL COMMENT 1
[2024-10-08] VITALS (12 sets, daily range): BP systolic 107–126; BP diastolic 50–74; TEMP 97.5–97.9; O2SAT 97–100
[2024-10-09] VITALS (12 sets, daily range): BP systolic 111–131; BP diastolic 55–61; TEMP 97.6–98.5; O2SAT 96–99
[2024-10-09 06:56] LABS: BASOPHILS # (AUTO) 0.1 K/UL (0.0-0.2); BASOPHILS % (AUTO) 0.6 % (0.0-2.0); EOSINOPHILS # (AUTO) 0.1 K/uL (0.0-0.7); EOSINOPHILS % (AUTO) 1.2 % (0.0-7.0); HEMATOCRIT 30.5 % (36.7-47.1); LYMPHOCYTES # (AUTO) 1.1 K/uL (0.8-4.8); LYMPHOCYTES % (AUTO) 12.3 % (20.5-51.5); MEAN CORPUSCULAR HEMOGLOBIN 32.6 uug (23.8-33.4); MEAN CORPUSCULAR HGB CONC 33 g/dL (32.5-36.3); MEAN CORPUSCULAR VOLUME 99.5 fL (73.0-96.2); MONOCYTES # (AUTO) 0.6 K/uL (0.1-1.30); MONOCYTES % (AUTO) 6.4 % (0.0-11.0); NEUTROPHILS # (AUTO) 7.2 K/uL (1.8-8.9); NEUTROPHILS % (AUTO) 79.5 % (38.5-71.5); PLATELET COUNT (AUTO) 301 K/uL (152-348); RED BLOOD CELL COUNT(AUTO) 3.07 MIL/uL (4.06-5.63); RED CELL DISTRIBUTION WIDTH 18.4 % (12.1-16.2)
[2024-10-09 07:07] LABS: CALCIUM 8.1 mg/dL (8.5-10.1); CARBON DIOXIDE 30 mmol/L (21-32); CHLORIDE 114 mmol/L (98-107); CREATININE 0.9 mg/dL (0.6-1.3); GLUCOSE 127 mg/dL (74-106); MAGNESIUM 1.8 mg/dL (1.8-2.4); PHOSPHOROUS 3.1 mg/dL (2.5-4.9); POTASSIUM 4.5 mmol/L (3.5-5.1); SODIUM SERUM 149 mmol/L (136-145); UREA NITROGEN, BLOOD 38 mg/dL (7-18)
[2024-10-09 07:11] LABS: DIFFERENTIAL COMMENT 1
[2024-10-09] MEDS: IV D5W 1000ML 1,000 ML IV PRN (09:59)
[2024-10-10] VITALS (11 sets, daily range): BP systolic 97–120; BP diastolic 46–55; TEMP 97.4–98.4; O2SAT 96–99
[2024-10-10 07:06] LABS: BASOPHILS % (AUTO) 0.3 % (0.0-2.0); EOSINOPHILS # (AUTO) 0.1 K/uL (0.0-0.7); EOSINOPHILS % (AUTO) 1.1 % (0.0-7.0); HEMATOCRIT 29.6 % (36.7-47.1); LYMPHOCYTES # (AUTO) 1.1 K/uL (0.8-4.8); LYMPHOCYTES % (AUTO) 10.3 % (20.5-51.5); MEAN CORPUSCULAR HEMOGLOBIN 32.7 uug (23.8-33.4); MEAN CORPUSCULAR HGB CONC 34 g/dL (32.5-36.3); MONOCYTES # (AUTO) 0.7 K/uL (0.1-1.30); MONOCYTES % (AUTO) 6.9 % (0.0-11.0); NEUTROPHILS # (AUTO) 8.7 K/uL (1.8-8.9); NEUTROPHILS % (AUTO) 81.4 % (38.5-71.5); PLATELET COUNT (AUTO) 326 K/uL (152-348); RED BLOOD CELL COUNT(AUTO) 3.05 MIL/uL (4.06-5.63); RED CELL DISTRIBUTION WIDTH 18.1 % (12.1-16.2); WHITE BLOOD COUNT (AUTO) 10.7 K/uL (3.6-10.2)
[2024-10-10 07:13] LABS: CALCIUM 7.5 mg/dL (8.5-10.1); CARBON DIOXIDE 28 mmol/L (21-32); CHLORIDE 104 mmol/L (98-107); CREATININE 0.8 mg/dL (0.6-1.3); GLUCOSE 121 mg/dL (74-106); MAGNESIUM 1.4 mg/dL (1.8-2.4); PHOSPHOROUS 3.3 mg/dL (2.5-4.9); POTASSIUM 4.5 mmol/L (3.5-5.1); SODIUM SERUM 137 mmol/L (136-145); UREA NITROGEN, BLOOD 27 mg/dL (7-18)
[2024-10-10 07:24] LABS: DIFFERENTIAL COMMENT 1
[2024-10-10] MEDS: MAGNESIUM OXIDE 400 MG TABLET GT SCH (10:39)
[2024-10-11] VITALS (9 sets, daily range): BP systolic 99–113; BP diastolic 49–57; TEMP 97.6–98.5; O2SAT 95–99
[2024-10-11 06:41] LABS: BASOPHILS # (AUTO) 0.1 K/UL (0.0-0.2); BASOPHILS % (AUTO) 0.6 % (0.0-2.0); EOSINOPHILS # (AUTO) 0.1 K/uL (0.0-0.7); EOSINOPHILS % (AUTO) 1.1 % (0.0-7.0); HEMATOCRIT 28.3 % (36.7-47.1); HEMOGLOBIN 9.6 g/dL (12.5-16.3); LYMPHOCYTES # (AUTO) 1.2 K/uL (0.8-4.8); LYMPHOCYTES % (AUTO) 12.2 % (20.5-51.5); MEAN CORPUSCULAR HEMOGLOBIN 32.8 uug (23.8-33.4); MEAN CORPUSCULAR HGB CONC 34 g/dL (32.5-36.3); MONOCYTES # (AUTO) 0.9 K/uL (0.1-1.30); MONOCYTES % (AUTO) 9.3 % (0.0-11.0); NEUTROPHILS # (AUTO) 7.4 K/uL (1.8-8.9); NEUTROPHILS % (AUTO) 76.8 % (38.5-71.5); PLATELET COUNT (AUTO) 327 K/uL (152-348); RED BLOOD CELL COUNT(AUTO) 2.92 MIL/uL (4.06-5.63); RED CELL DISTRIBUTION WIDTH 18.1 % (12.1-16.2); WHITE BLOOD COUNT (AUTO) 9.7 K/uL (3.6-10.2)
[2024-10-11 07:12] LABS: CARBON DIOXIDE 29 mmol/L (21-32); CHLORIDE 104 mmol/L (98-107); CREATININE 0.9 mg/dL (0.6-1.3); GLUCOSE 116 mg/dL (74-106); MAGNESIUM 1.4 mg/dL (1.8-2.4); PHOSPHOROUS 4.1 mg/dL (2.5-4.9); POTASSIUM 4.6 mmol/L (3.5-5.1); SODIUM SERUM 137 mmol/L (136-145); UREA NITROGEN, BLOOD 21 mg/dL (7-18)
[2024-10-11 07:13] LABS: DIFFERENTIAL COMMENT 1
[2024-10-11] MEDS: MAGNESIUM OXIDE 400 MG TABLET PO SCH (10:05)
== END 2024-10-11 17:15 | DRG 871 ==
LOC: TELE3 14:56
PROVIDERS: ADMIT Internal Medicine Nephrology; ATTEND Internal Medicine Nephrology
DX: A41.9 Sepsis, unspecified organism (principal); J15.211 Pneumonia due to Methicillin susceptible Staphylococcus aureus; J96.01 Acute respiratory failure with hypoxia; J96.02 Acute respiratory failure with hypercapnia; L89.153 Pressure ulcer of sacral region, stage 3; J69.0 Pneumonitis due to inhalation of food and vomit; B37.41 Candidal cystitis and urethritis; J98.11 Atelectasis; K94.13 Enterostomy malfunction; R64 Cachexia; J47.0 Bronchiectasis with acute lower respiratory infection; G72.81 Critical illness myopathy; E87.0 Hyperosmolality and hypernatremia; N17.9 Acute kidney failure, unspecified; R31.0 Gross hematuria; E78.5 Hyperlipidemia, unspecified; E03.9 Hypothyroidism, unspecified; R13.10 Dysphagia, unspecified; K80.20 Calculus of gallbladder without cholecystitis without obstruction; Z68.20 Body mass index [BMI] 20.0-20.9, adult; I25.10 Atherosclerotic heart disease of native coronary artery without angina pectoris; Z98.61 Coronary angioplasty status; Z87.19 Personal history of other diseases of the digestive system; E83.42 Hypomagnesemia; I12.9 Hypertensive chronic kidney disease with stage 1 through stage 4 chronic kidney disease, or unspecified chronic kidney disease; N18.9 Chronic kidney disease, unspecified; N20.0 Calculus of kidney; J43.9 Emphysema, unspecified; Z22.39 Carrier of other specified bacterial diseases; Z86.74 Personal history of sudden cardiac arrest; Z87.01 Personal history of pneumonia (recurrent); Z79.82 Long term (current) use of aspirin; Z79.899 Other long term (current) drug therapy; Z85.038 Personal history of other malignant neoplasm of large intestine
CPT/HCPCS: 36415; 36600; 70030-TC; 71045; 74230; 83735; 84100; 85025; 85730; 86140; 87040; 94640; 94760; A4663; A6213; G0378; J2185; J2543; J3590; J7040; J7070; J7120